=== PATIENT | female | born 1960 | race Two or more races ===

== ENCOUNTER 2017-08-05 08:17 | Emergency (ER) | payer MEDICAID, MEDICARE ==
--- NOTE | 2017-08-05 08:45 | EDM.PDOC ---
ED HPI GENERAL MEDICAL PROBLEM - General Chief Complaint: Flank Pain Stated Complaint: LEFT SIDE PAIN Time Seen by Provider: 08/05/17 08:17 Source of Information: Reports: Patient, Family - History of Present Illness INITIAL COMMENTS - FREE TEXT/NARRATIVE: 57 y.o NA H/U Urolithiasis, S/P ureter stent placement in the past, came to the ed due to sudden onset of left sided flank pain with blood in urine. Pain is rated as 10/10.No N/V/D no dizzyness or lightheadedness. Pt denies other acute medical issues. Onset: Today, Sudden Onset Date: 08/05/17 Onset Time: 07:00 Duration: Minutes: Location: Reports: Abdomen Quality: Reports: Ache, Burning, Dull, Pressure Severity: Moderate Improves with: Reports: None Worsens with: Reports: Movement Context: Reports: Other (H/O Kstones) Associated Symptoms: Reports: No Other Symptoms left mid abdomen Pain Score (Numeric/FACES): 10 - Related Data Allergies Allergy/AdvReac Type Severity Reaction Status Date / Time No Known Allergies Allergy Verified 08/05/17 08:32 Home Meds: Home Meds Calcium Carbonate/Vitamin D3 [Os-Neymar 500+D Caplet] 1 each PO DAILY 06/25/13 [ History] Cyanocobalamin (Vitamin B-12) [Cyanocobalamin Injection] 1,000 mcg IM ASDIRECTED 06/25/13 [History] Fenofibric Acid (Choline) [Trilipix] 135 mg PO DAILY 06/25/13 [History] Hydrocodone/Acetaminophen [Vicodin 5-300 mg Tablet] 1 tab PO QID #20 tablet 04/30 [Rx] Insulin Detemir [Levemir] 50 units SQ BEDTIME 06/25/13 [History] Iron 325 mg PO DAILY 06/25/13 [History] Iron Fum & Ps Cmp/Vit C & B [Integra] 1 each PO DAILY 06/25/13 [History] Lisinopril [Lisinopril] 40 mg PO DAILY 06/25/13 [History] Multivitamin with Minerals [Chun Multivitamin with Mineral] 1 tab PO DAILY 06/25 [History] Rosuvastatin Calcium [Crestor] 1 tab PO DAILY 06/25/13 [History] glipiZIDE [Glipizide] 10 mg PO BID 06/25/13 [History] Amiodarone [Cordarone] 200 mg PO DAILY 08/05/17 [History] Famotidine 40 mg PO DAILY 08/05/17 [History] Ibuprofen [Motrin] 600 mg PO Q8H PRN #20 tab 08/05/17 [Rx] Latanoprost [Xalatan 0.005% Ophth Soln] 1 drop .ROUTE DAILY 08/05/17 [History] Rivaroxaban [Xarelto] 10 mg PO DAILY 08/05/17 [History] Sulfamethoxazole/Trimethoprim [Bactrim Ds Tablet] 1 each PO BID #20 tablet 08/05 [Rx] Tamsulosin HCl [Flomax] 0.4 mg PO DAILY #4 cap.er.24h 08/05/17 [Rx] oxyCODONE HCl/Acetaminophen [Percocet 5-325 mg Tablet] 1 each PO Q6HR PRN #6 tablet 08/05/17 [Rx] Social & Family History - Recreational Drug Use Recreational Drug Use: No ED ROS GENERAL - Review of Systems Review Of Systems: See Below Constitutional: Reports: No Symptoms HEENT: Reports: No Symptoms Respiratory: Reports: No Symptoms Cardiovascular: Reports: No Symptoms Endocrine: Reports: No Symptoms GI/Abdominal: Reports: No Symptoms : Reports: Flank Pain Musculoskeletal: Reports: No Symptoms Skin: Reports: No Symptoms Neurological: Reports: No Symptoms Psychiatric: Reports: No Symptoms Hematologic/Lymphatic: Reports: No Symptoms Immunologic: Reports: No Symptoms ED EXAM, GI/ABD - Physical Exam Exam: See Below Exam Limited By: No Limitations General Appearance: Alert, WD/WN, Mild Distress, Obese Eyes: Bilateral: Normal Appearance Ears: Normal External Exam Nose: Normal Inspection Throat/Mouth: Normal Inspection Head: Atraumatic, Normocephalic Neck: Normal Inspection, Supple, Non-Tender Respiratory/Chest: No Respiratory Distress, Lungs Clear, Normal Breath Sounds Cardiovascular: Normal Peripheral Pulses, Regular Rate, Rhythm GI/Abdominal Exam: Other (left flank pain) (Female) Exam: Deferred Rectal (Female) Exam: Deferred Back Exam: Normal Inspection Extremities: Normal Inspection, Normal Range of Motion Neurological: Alert, Oriented, CN II-XII Intact, Normal Cognition Psychiatric: Normal Affect Skin Exam: Warm, Dry, Intact, Normal Color, No Rash Lymphatic: No Adenopathy Course - Vital Signs Text/Narrative:: 57 y.o NA H/U Urolithiasis, S/P ureter stent placement in the past, came to the ed due to sudden onset of left sided flank pain with blood in urine. Pain is rated as 10/10.No N/V/D no dizzyness or lightheadedness. Pt denies other acute medical issues. PE: Obese, left flank pain Labs: UA pos for UTI with hematuria WBC nl. Imaging: CT abd/pelvisL 4.6 mm stone left UVJ wit severe Hydronephrosis and peripheral stranding at left kidney Impression: urolithiasis with UTI and hematuria 9.32 consultation: , Urologist, [facility]: No stent indicated at this time. Tx: Toradol. Flomax Reexam: pain improved 80% Plan: D/C with instructions Last Recorded V/S: Last Vital Signs Temp 36.9 C 08/05/17 10:55 Pulse 65 08/05/17 10:55 Resp 16 08/05/17 10:55 BP 125/51 L 08/05/17 10:55 Pulse Ox 100 08/05/17 10:55 - Orders/Labs/Meds Labs: Laboratory Tests 08/05/17 08/05/17 08/05/17 Range/Units 08:48 08:48 10:16 WBC 9.6 (4.5-12.0) X10-3/uL RBC 3.81 (3.23-5.20) x10(6)uL Hgb 10.7 L (11.5-15.5) g/dL Hct 32.2 (30.0-51.3) % MCV 84.6 (80-96) fL MCH 28.1 (27.7-33.6) pg MCHC 33.3 (32.2-35.4) g/dL RDW 13.6 (11.5-15.5) % Plt Count 303 (125-369) X10(3)uL MPV 8.4 (7.4-10.4) fL Neut % (Auto) 79.8 (46-82) % Lymph % (Auto) 11.8 L (13-37) % Martin % (Auto) 6.3 (4-12) % Eos % (Auto) 2 (1.0-5.0) % Baso % (Auto) 1 (0-2) % Neut # (Auto) 7.7 (1.6-8.3) # Lymph # (Auto) 1.1 (0.6-5.0) # Martin # (Auto) 0.6 (0.0-1.3) # Eos # (Auto) 0.2 (0.0-0.8) # Baso # (Auto) 0.0 (0.0-0.2) # Sodium 139 (135-145) mmol/L Potassium 4.6 D (3.5-5.3) mmol/L Chloride 109 D (100-110) mmol/L Carbon Dioxide 21 L (23-29) mmol/L BUN 27 H (5-20) mg/dL Creatinine 1.5 H (0.6-1.3) mg/dL Est Cr Clr Drug Dosing 38.27 mL/min Estimated GFR (MDRD) 36 L (>60) BUN/Creatinine Ratio 18.0 (9-20) Glucose 209 H D (80-116) mg/dL Calcium 8.6 (8.6-10.2) mg/dL Amylase 61 (28-100) U/L Urine Color Yellow (YELLOW) Urine Appearance Cloudy (CLEAR) Urine pH 5.0 (5.0-6.5) Ur Specific [place]ondo 1.020 (1.010-1.025) Urine Protein Negative (NEGATIVE) mg/dL Urine Glucose (UA) Normal (NEGATIVE) mg/dL Urine Ketones Negative (NEGATIVE) mg/dL Urine Occult Blood Large H (NEGATIVE) Urine Nitrite Negative (NEGATIVE) Urine Bilirubin Negative (NEGATIVE) Urine Urobilinogen Normal (NEGATIVE) mg/dL Ur Leukocyte Esterase Small H (NEGATIVE) Urine RBC Packed H (0) Meds: Medications Discontinued Medications Generic Name Dose Route Start Last Admin Trade Name Freq PRN Reason Stop Dose Admin Ketorolac Tromethamine 30 mg 08/05/17 08:42 08/05/17 10:11 Toradol IVPUSH 08/05/17 08:43 Not Given ONETIME ONE Ketorolac Tromethamine 30 mg 08/05/17 10:07 08/05/17 09:15 Toradol IM 08/05/17 10:08 30 mg ONETIME STA Administration Ketorolac Tromethamine 30 mg 08/05/17 10:09 08/05/17 10:24 Toradol IM 08/05/17 10:10 30 mg ONETIME ONE Administration Tamsulosin HCl 0.4 mg 08/05/17 09:27 08/05/17 09:39 Flomax PO 08/05/17 09:28 0.4 mg ONETIME ONE Administration Trimethoprim/Sulfamethoxazole 1 tab 08/05/17 10:41 08/05/17 11:24 Septra Ds PO 08/05/17 10:42 Not Given ONETIME ONE Departure - Departure Time of Disposition: 10:42 Disposition: Home, Self-Care 01 Condition: Good Clinical Impression: UTI (urinary tract infection) Qualifiers: Urinary tract infection type: acute cystitis Hematuria presence: with hematuria Qualified Code(s): N30.01 - Acute cystitis with hematuria Urolithiasis Qualifiers: Urinary calculus location: lower urinary tract Qualified Code(s): N21.9 - Calculus of lower urinary tract, unspecified - Discharge Information Prescriptions: oxyCODONE HCl/Acetaminophen [Percocet 5-325 mg Tablet] 1 each PO Q6HR PRN #6 tablet PRN Reason: severe pain Ibuprofen [Motrin] 600 mg PO Q8H PRN #20 tab PRN Reason: moderate pain Sulfamethoxazole/Trimethoprim [Bactrim Ds Tablet] 1 each PO BID #20 tablet Tamsulosin HCl [Flomax] 0.4 mg PO DAILY #4 cap.er.24h Instructions: Kidney Stones, [id number], Urinary Tract Infection, Adult, Easy -to-Read, Flank Pain, [id number] Referrals: PCP,None [Primary Care Provider] - Forms: ED Department Discharge Additional Instructions: Please increase water intake, please take the meds as recommended. Please follow up, please come back if your symptoms get worse acutely.
[2017-08-05] MEDS ORDERED: Tamsulosin 0.4 MG Cap.ER PO ONE (09:27)
[2017-08-05] MEDS: Ketorolac 30 MG/ML SDV IVPUSH ONE ×2 (09:32→10:11)
[2017-08-05] MEDS ORDERED: Ketorolac 30 MG/ML SDV IM STA (10:07)
[2017-08-05] MEDS ORDERED: Ketorolac 30 MG/ML SDV IM ONE (10:09)
--- NOTE | 2017-08-05 10:32 | CT ---
INDICATION: Left flank pain and hematuria since [address] ABDOMEN AND PELVIS WITHOUT CONTRAST: Spiral 1.25-mm axial sections were obtained through the abdomen and pelvis with renal calculus protocol, including sagittal and coronal reconstructions and no contrast. Examination was 2016 and is compared with 06/25/2013. Total Exam DLP = 2168.50 mGy-cm. The lower lung menard and pleural spaces visualized showed no evidence of a definite active infiltrate or effusion. The gallbladder is absent, compatible with history of its removal with clips at the cystic duct. The liver was unremarkable. The heart did not appear enlarged. The spleen was unremarkable. Calcifications are noted in the splenic artery. The tail of the pancreas is again noted to be prominent - a normal variant, and was otherwise unremarkable. In the right kidney there is a tiny calculus in the upper middle pole area. At the left kidney there is extensive renal fascial thickening - perirenal fat stranding and fluid, with markedly dilated pyelocaliceal system down to the proximal ureter, where an apparent obstructing calculus is present which measures 6.3 x 4.5 mm. High-grade obstruction is present. No more distal ureteral calculus is seen. Uterine artery calcifications, femoral, iliac, and aortic calcifications are noted. The appendix appeared normal. No evidence of bowel obstruction was suggested. The urinary bladder had a normal appearance. Degenerative changes and disk disease at L2-3, L3-4, and L4-5 with vacuum disk phenomena and progression of disease compared with the previous examination. 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 IMPRESSION: 1. Obstructive uropathy appears severe on the left due to a 6.3 x 4.5-mm calculus at the ureteropelvic junction on the left with perirenal fat stranding fairly prominent. 2. Minimal calculus in the right kidney. 3. ASD. 4. Post cholecystectomy. 5. Degenerative changes and disk disease at L2-3, L3-4, and L4-5 with vacuum disk phenomena and progression of disease compared with the previous examination. 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 Phleboliths are noted in the pelvis. The urinary bladder was unremarkable. The appendix was normal. Report was called to Dr. Bowman at 0926 hours, 08/05/2017. MTDD
[2017-08-05] MEDS ORDERED: Sulfamethoxazole/Trimethoprim 800-160 MG Tab PO ONE (10:41)
[2017-08-05 11:03] VITALS: BP 125/51
== END 2017-08-05 10:55 | disposition home or self-care (01) ==
LOC: FB.ED 08:17
DX: N30.01 Acute cystitis with hematuria (principal); N13.2 Hydronephrosis with renal and ureteral calculous obstruction; Z96.0 Presence of urogenital implants; Z79.899 Other long term (current) drug therapy
CPT/HCPCS: 36415; 74176; 80048; 81001; 82150; 85025; 96372; 99284; A9270; J1885